=== PATIENT | male | born 1985 | race Caucasian/White ===

== ENCOUNTER → 2025-06-08 | Outpatient (CLI) | payer OTHER, BC, SELFPAY ==
[2025-06-08 11:42] LABS: Basophils # (Auto) 0.0 Thou/mm3 (0.0-0.2); Basophils % (Auto) 0 % (0-2.5); Eosinophils # (Auto) 0.1 Thou/mm3 (0.0-0.5); Eosinophils % (Auto) 1 % (0-10); Hematocrit 44.9 % (41.0-53.0); Hemoglobin 15.4 g/dL (13.5-16.0); Immature Granulocytes Auto 0.03 Thou/mm3 (0.00-0.00); Lymphocytes # (Auto) 1.3 Thou/mm3 (1.0-4.8); Lymphocytes % (Auto) 13 % (10-50); Mean Corpuscular HGB Conc 34.3 g/dl (31.0-37.0); Mean Corpuscular Hemoglobin 29.5 pg (25.0-35.0); Mean Corpuscular Volume 86 fL (80-100); Monocytes # (Auto) 0.5 Thou/mm3 (0.0-0.8); Monocytes % (Auto) 5 % (0-12); Neutrophils # (Auto) 8.4 Thou/mm3 (1.8-7.7); Neutrophils % (Auto) 81 % (37-80); Nucleated Red Blood Cell # 0.00 Thou/mm3 (0.00-0.00); Nucleated Red Blood Cell % 0 /100 WBC (0); Platelet Count 261 Thou/mm3 (140-440); RDW Standard Deviation 38.8 fL (35.1-43.9); Red Blood Count 5.22 Miln/mm3 (4.50-5.90); White Blood Count 10.4 Thou/mm3 (3.8-10.6)
[2025-06-08 12:00] LABS: Alanine Aminotransferase 19 U/L (10-49); Albumin, Serum 4.5 gm/dL (3.5-5.0); Albumin/Globulin Ratio 2.3 (1.2-2.2); Alkaline Phosphatase 128 U/L (46-116); Anion Gap 8 (7-16); Aspartate Amino Transferase 20 U/L (0-34); BUN/Creatinine Ratio 18 Ratio (12-20); Bilirubin,Total 0.6 mg/dL (0.3-1.2); Blood Urea Nitrogen 14 mg/dL (9-23); Calcium 9.9 mg/dL (8.3-10.6); Calcium (Corrected) 9.9 mg/dL (8.5-10.1); Carbon Dioxide 29.6 mMol/L (20.0-31.0); Chloride 103 mMol/L (98-107); Creatinine (Component) 0.8 mg/dL (0.6-1.3); Globulin 2.0 gm/dL (2.3-3.5); Glucose 105 mg/dL (74-106); Osmolality,Calculated 281 (275-295); Potassium 4.3 mMol/L (3.4-5.1); Sodium 141 mMol/L (136-145); Total Protein 6.5 gm/dL (5.7-8.2); eGFR > 60 See Note
== END | disposition home or self-care (01) ==
LOC: COPL 11:04
PROVIDERS: PCP Physician Assistant; Referring Provider Student in an Organized Health Care Education/Training Program; Visit Provider Student in an Organized Health Care Education/Training Program
DX: R10.9 Unspecified abdominal pain (principal)
CPT/HCPCS: 36415; 80053; 85025